=== PATIENT | male | born 1960 | race Caucasian/White ===

== ENCOUNTER → 2018-08-23 | Day surgery (SDC) | payer OTHER ==
[~2018-08-23] MED LIST: ATORVASTATIN CA20 MG PO; CLONAZEPAM2 M1; DICLOFENAC SODI50 MG PO; EYE ALLERGY REL15 M1 OP; EYE ITCH RELIEF5 ML OP; LUBRICANT EYE15 M1 OP; MULTI-DAY VITA1 EACH PO; NABUMETONE500 MG PO; TRAMADOL HCL50 MG PO; ZADITOR5 ML OP
== END | disposition home or self-care (01) ==
LOC: ADM 08-15 07:00 → CIR.AMB 08-16 05:15 → ADM 08-16 07:00 → CIR.AMB 06:00
DX: M72.0 Palmar fascial fibromatosis [Dupuytren] (principal); R22.32 Localized swelling, mass and lump, left upper limb